=== PATIENT | female | born 1945 | race Native Hawaiian/Other Pacific Islander ===

== ENCOUNTER 2017-05-29 11:04 | Outpatient (CLI) | payer OTHER, BC ==
[~2017-05-29 11:04] MED LIST: ALPR0.5T24 PO; AMLO10TA PO; ASA LO-DOSE81 MG OR; CIPR500T PO; ESTR0.6211 PO; FLUC150T PO; GABA300C2 PO; JANUMET1 TA1 PO; LANTUS SOLOSTAR SC; LEVO0.0218 PO; METFORMIN PO; OMEPRAZOLE20 MG OR; QUINAPRIL40 MG OR
[2017-05-29 11:35] LABS: PLATELET COUNT 168 K/uL (152-353)
[2017-05-29 12:13] LABS: POTASSIUM 3.7 mmol/L (3.6-5.2)
== END 2017-05-29 19:00 | disposition home or self-care (01) ==
LOC: LAB 11:04
PROVIDERS: Internal Medicine
DX: E11.9 Type 2 diabetes mellitus without complications (principal)
CPT/HCPCS: 80053; 80061; 81000; 82043; 82570; 83036; 84439; 84443; 85027

== ENCOUNTER 2017-12-11 14:51 | Outpatient (CLI) | payer OTHER, BC ==
[2017-12-11 15:04] LABS: PLATELET COUNT 144 K/uL (152-353)
[2017-12-11 16:29] LABS: POTASSIUM 4.5 mmol/L (3.6-5.2)
== END 2017-12-11 19:26 | disposition home or self-care (01) ==
LOC: LAB 14:51
PROVIDERS: Internal Medicine
DX: E11.9 Type 2 diabetes mellitus without complications (principal)
CPT/HCPCS: 80053; 80061; 81000; 82043; 82570; 83036; 84439; 84443; 85027

== ENCOUNTER 2018-06-22 13:47 | Outpatient (CLI) | payer OTHER, BC ==
[2018-06-22 14:24] LABS: PLATELET COUNT 170 K/uL (152-353)
[2018-06-22 14:57] LABS: POTASSIUM 4.1 mmol/L (3.6-5.2)
== END 2018-06-22 23:32 | disposition home or self-care (01) ==
LOC: LAB 13:47
PROVIDERS: Internal Medicine
DX: Z00.00 Encounter for general adult medical examination without abnormal findings (principal); E03.9 Hypothyroidism, unspecified; E11.9 Type 2 diabetes mellitus without complications
CPT/HCPCS: 80053; 80061; 81000; 82043; 82570; 83036; 84439; 84443; 85027

== ENCOUNTER 2018-07-01 08:29 | Outpatient (CLI) | payer OTHER, BC | END 2018-07-01 20:12 | disposition home or self-care (01) | LOC: US 08:29 | DX: Z12.31 Encounter for screening mammogram for malignant neoplasm of breast (principal); Z13.6 Encounter for screening for cardiovascular disorders ==

== ENCOUNTER 2019-01-01 10:19 | Outpatient (CLI) | payer OTHER, BC ==
[2019-01-01 10:32] LABS: PLATELET COUNT 150 K/uL (152-353)
[2019-01-01 11:01] LABS: POTASSIUM 4.4 mmol/L (3.6-5.2)
== END 2019-01-01 20:08 | disposition home or self-care (01) ==
LOC: LAB 10:19
PROVIDERS: Internal Medicine
DX: E11.9 Type 2 diabetes mellitus without complications (principal)
CPT/HCPCS: 80053; 80061; 81000; 82043; 82570; 83036; 83735; 84439; 84443; 85027

== ENCOUNTER 2019-06-28 15:45 | Outpatient (CLI) | payer OTHER, BC | END 2019-06-28 19:39 | disposition home or self-care (01) | LOC: RAD 15:45 | DX: M54.40 Lumbago with sciatica, unspecified side (principal) ==

== ENCOUNTER 2019-07-22 12:42 | Outpatient (CLI) | payer OTHER, BC | END 2019-07-22 23:31 | disposition home or self-care (01) | LOC: MRI 12:42 | DX: M48.061 Spinal stenosis, lumbar region without neurogenic claudication (principal) ==

== ENCOUNTER 2019-07-29 15:10 | Outpatient (CLI) | payer OTHER, BC ==
[2019-07-29 16:26] LABS: PLATELET COUNT 147 K/uL (152-353)
== END 2019-07-29 20:41 | disposition home or self-care (01) ==
LOC: LAB 15:10
PROVIDERS: Internal Medicine
DX: Z00.00 Encounter for general adult medical examination without abnormal findings (principal); E11.9 Type 2 diabetes mellitus without complications
CPT/HCPCS: 80053; 80061; 81000; 83036; 84439; 84443; 85027

== ENCOUNTER 2019-08-11 09:50 | Outpatient (CLI) | payer OTHER, BC | END 2019-08-11 21:20 | disposition home or self-care (01) | LOC: CT 09:50 → MAMMO 11:30 → CT 21:20 | DX: Z13.820 Encounter for screening for osteoporosis (principal); Z12.31 Encounter for screening mammogram for malignant neoplasm of breast; N28.1 Cyst of kidney, acquired | CPT/HCPCS: Q9963 ==

== ENCOUNTER 2019-10-05 12:21 | Outpatient (CLI) | payer OTHER, BC | END 2019-10-05 16:00 | disposition home or self-care (01) | LOC: RESP 12:21 | DX: M54.16 Radiculopathy, lumbar region (principal) ==

== ENCOUNTER 2020-02-23 12:15 | Outpatient (CLI) | payer OTHER, BC ==
[2020-02-23 12:58] LABS: PLATELET COUNT 150 K/uL (152-353)
[2020-02-23 13:11] LABS: POTASSIUM 4.2 mmol/L (3.6-5.2)
== END 2020-02-23 20:07 | disposition home or self-care (01) ==
LOC: LAB 12:15
PROVIDERS: Internal Medicine
DX: E11.9 Type 2 diabetes mellitus without complications (principal); I10 Essential (primary) hypertension; G31.84 Mild cognitive impairment of uncertain or unknown etiology
CPT/HCPCS: 80053; 80061; 82043; 82570; 83036; 84439; 84443; 85027

== ENCOUNTER 2021-04-09 09:22 | Outpatient (CLI) | payer OTHER ==
[2021-04-09 10:14] LABS: POTASSIUM 5.1 mmol/L (3.6-5.2)
== END 2021-04-09 21:22 | disposition home or self-care (01) ==
LOC: LABW 09:22 → CT 09:22 → LABW 21:22
PROVIDERS: ATTEND Specialist
DX: C64.2 Malignant neoplasm of left kidney, except renal pelvis (principal)
CPT/HCPCS: 36415; 80048

== ENCOUNTER 2022-11-18 12:50 | Outpatient (CLI) | payer BC | END 2022-11-18 21:50 | disposition home or self-care (01) | LOC: US 12:50 | PROVIDERS: ATTEND Internal Medicine | DX: E04.1 Nontoxic single thyroid nodule (principal); C64.2 Malignant neoplasm of left kidney, except renal pelvis; Z12.31 Encounter for screening mammogram for malignant neoplasm of breast ==

== ENCOUNTER 2022-12-11 11:34 | Outpatient (CLI) | payer BC | END 2022-12-11 19:41 | disposition home or self-care (01) | LOC: MAMMO 11:34 | PROVIDERS: ATTEND Internal Medicine | DX: R92.8 Other abnormal and inconclusive findings on diagnostic imaging of breast (principal) ==